=== PATIENT | male | born 1985 | race Caucasian/White ===

== ENCOUNTER 2017-01-11 23:28 | Emergency (ER) | payer OTHER ==
[~2017-01-11] VITALS: Ht 162.6 cm; Wt 81.8 kg
[2017-01-11 23:30] VITALS: Ht 162.6 cm; Wt 81.8 kg
--- NOTE | 2017-01-11 23:44 | ERA ---
ER Documentation Chief Complaint Date/Time DATE: 01/11/17 TIME: 23:43 Chief Complaint medical clearance HPI The patient is a 31-year-old male, presenting to the ER for medical clearance for holding correction in [facility]. He has been drinking prior to being arrested. He is unable to provide any history, the history is obtained from the supervising law enforcement analyst Past medica history: Cirrhosis Past surgical history: Unable to obtain due to his condition ROS All systems reviewed and are negative except as per history of present illness. Physical Exam Vitals Vital Signs Date Time Temp Pulse Resp B/P Pulse Ox O2 Delivery O2 Flow Rate FiO2 01/12/17 02:32 88 16 122/88 99 01/11/17 23:30 97.7 82 10 131/77 99 Room Air 01/11/17 23:30 97.7 82 10 131/77 92 Physical Exam Const: No acute distress. Head: Atraumatic. Eyes: Normal Conjunctiva. ENT: Normal External Ears, Nose and Mouth. Neck: Full range of motion. No meningismus. Resp: Clear to auscultation bilaterally. Cardio: Regular rate and rhythm, no murmurs. Abd: Soft, non distended, normal bowel sounds, non tender. Skin: No petechiae or rashes. Back: No midline or flank tenderness. Ext: No cyanosis, or edema. Neur: Unable to perform due to his condition Psych: Unable to perform due to his condition. Result Diagram: 01/11/17 2335 01/11/17 2335 Results 24 hrs Laboratory Tests Test 01/11/17 23:35 01/11/17 23:55 01/12/17 00:12 White Blood Count 5.310^3/ul Red Blood Count 3.7910^6/ul Hemoglobin 8.8g/dl Hematocrit 29.7% Mean Corpuscular Volume 78.4fl Mean Corpuscular Hemoglobin 23.2pg Mean Corpuscular Hemoglobin Concent 29.6g/dl Red Cell Distribution Width 22.5% Platelet Count 46976^3/UL Mean Platelet Volume 10.8fl Neutrophils % 49.5% Lymphocytes % 34.5% Monocytes % 9.7% Eosinophils % 5.5% Basophils % 0.4% Nucleated Red Blood Cells % 0.0/100WBC Neutrophils # 2.610^3/ul Lymphocytes # 1.810^3/ul Monocytes # 0.510^3/ul Eosinophils # 0.310^3/ul Basophils # 0.010^3/ul Nucleated Red Blood Cells # 0.010^3/ul Prothrombin Time 15.2Sec Prothrombin Time Ratio 1.2 INR International Normalized Ratio 1.19 Activated Partial Thromboplast Time 33.7Sec Sodium Level 146mmol/L Potassium Level 3.6mmol/L Chloride Level 111mmol/L Carbon Dioxide Level 24mmol/L Anion Gap 15 Blood Urea Nitrogen 9mg/dl Creatinine 0.51mg/dl Glucose Level 108mg/dl Calcium Level 8.6mg/dl Total Bilirubin 0.8mg/dl Direct Bilirubin 0.00mg/dl Indirect Bilirubin 0.8mg/dl Aspartate Amino Transf (AST/SGOT) 74IU/L Alanine Aminotransferase (ALT/SGPT) 48IU/L Alkaline Phosphatase 196IU/L Total Protein 8.8g/dl Albumin 4.4g/dl Globulin 4.40g/dl Albumin/Globulin Ratio 1.00 Lipase 127U/L Ethyl Alcohol Level 417.0mg/dl Urine Opiates Screen NEGATIVE Urine Barbiturates NEGATIVE Urine Amphetamines Screen NEGATIVE Urine Benzodiazepines Screen NEGATIVE Urine Cocaine Screen NEGATIVE Urine Cannabinoids NEGATIVE Bedside Glucose 164mg/dL Current Medications Medications (Trade) Dose Ordered Sig/Matty Route PRN Reason Start Time Stop Time Status Last Admin Dose Admin Ondansetron HCl (Zofran Inj) 4 mg ONCE STAT IM 01/11/17 23:47 01/11/17 23:48 DC 01/12/17 00:07 Procedures/[place] [id number] Radiology Main Line: [phone] DIAGNOSTIC IMAGING REPORT Patient: SOMMER PEREZ : 1985 Age: 31 Sex: M MR #: [id number] DOS: 01/11/17 0000 Ordering MD: DULCE GODDARD MD Location: E/R Room/Bed: PROCEDURE: XR Chest. CLINICAL INDICATION: Rule out pneumonia. TECHNIQUE: Single frontal view of the chest. COMPARISON: None. FINDINGS: The cardiomediastinal silhouette is within normal limits. Mild retrocardiac airspace disease may represent pneumonia. The lungs are otherwise clear. No signs of pleural fluid or pneumothorax are seen. The osseous structures and soft tissues are unremarkable. IMPRESSION: Mild retrocardiac airspace disease may represent pneumonia. RPTAT: [facility] Physician [facility] Date Time Electronically viewed and signed by Asif Sanz Physician on 01/12/2017 02:16 RS/ CC: DULCE GODDARD MD MEDICAL MAKING DECISION: The patient is a 31-year-old male, presenting to the ER for medical clearance, acute alcohol intoxication, suspected pneumonia. He is resting well in the emergency department. He was treated with Zofran 4 mg IM for nausea with good response. The differential diagnoses considered include but are not limited to alcohol intoxication, psychosis, drug-induced psychosis Departure Diagnosis: Primary Impression: Alcoholic intoxication Additional Impressions: Pneumonia Anemia Thrombocytopenia Condition: Stable Comments He will be discharged once he is sober with Zithromax for suspected pneumonia I discussed the findings with the patient. I advised the patient to follow-up with the correction physician in the morning for further evaluation The patient's blood pressure was elevated (>120/80) but appears stable without evidence of hypertension emergency or urgency. The patient was counseled about the risks of hypertension and urged to pursue outpatient monitoring and therapy within a week with their primary care physician. DULCE GODDARD MD January 11, 2017 23:43
[2017-01-11] MEDS ORDERED: ONDANSETRON 4 MG INJ IM STA (23:47)
[2017-01-12 00:01] LABS: ADD SCAN DIFF NO
[2017-01-12 00:04] LABS: ABNORMAL IP MESSAGE 1; HEMOGLOBIN 8.8 g/dl (14.0-18.0); WHITE BLOOD COUNT 5.3 10^3/ul (4.8-10.8)
[2017-01-12 00:09] LABS: BASOPHILS % 0.4 % (0.0-2.0); EOSINOPHILS # 0.3 10^3/ul (0.0-0.5); EOSINOPHILS % 5.5 % (0.0-7.0); HEMATOCRIT 29.7 % (42.0-52.0); LYMPHOCYTES # 1.8 10^3/ul (0.8-2.9); LYMPHOCYTES % 34.5 % (15.0-51.0); MEAN CORPUSCULAR HEMOGLOBIN 23.2 pg (29.0-33.0); MEAN CORPUSCULAR HGB CONC 29.6 g/dl (32.0-37.0); MEAN CORPUSCULAR VOLUME 78.4 fl (82.0-101.0); MEAN PLATELET VOLUME 10.8 fl (7.4-10.4); MONOCYTE # 0.5 10^3/ul (0.3-0.9); MONOCYTES % 9.7 % (0.0-11.0); NEUTROPHIL # 2.6 10^3/ul (1.6-7.5); NEUTROPHILS % 49.5 % (39.0-77.0); PLATELET COUNT 123 10^3/UL (140-415); RED BLOOD COUNT 3.79 10^6/ul (4.70-6.10); RED CELL DISTRIBUTION WIDTH 22.5 % (11.5-14.5)
[2017-01-12 00:21] LABS: INR 1.19; PROTIME 15.2 Sec (12.2-14.2); PT RATIO 1.2
[2017-01-12 00:22] LABS: PARTIAL THROMBOPLASTIN TIME 33.7 Sec (25.0-35.0)
[2017-01-12 00:38] LABS: BARBITURATES NEGATIVE (NEGATIVE); BENZODIAZEPINES NEGATIVE (NEGATIVE); CANNABINOIDS NEGATIVE (NEGATIVE); COCAINE NEGATIVE (NEGATIVE); OPIATES NEGATIVE (NEGATIVE)
[2017-01-12 01:23] LABS: ALBUMIN 4.4 g/dl (3.3-4.9)
[2017-01-12 01:26] LABS: BILIRUBIN,INDIRECT 0.8 mg/dl (0-1.1); BILIRUBIN,TOTAL 0.8 mg/dl (0.2-1.3); CALCIUM 8.6 mg/dl (8.4-10.2); CREATININE 0.51 mg/dl (0.61-1.24); TOTAL PROTEIN 8.8 g/dl (6.1-8.1)
[2017-01-12 01:45] LABS: POTASSIUM 3.6 mmol/L (3.5-5.1)
--- NOTE | 2017-01-12 02:17 | RADRPT ---
PROCEDURE: XR Chest. CLINICAL INDICATION: Rule out pneumonia. TECHNIQUE: Single frontal view of the chest. COMPARISON: None. FINDINGS: The cardiomediastinal silhouette is within normal limits. Mild retrocardiac airspace disease may rep resent pneumonia. The lungs are otherwise clear. No signs of pleural fluid or pneumothorax are seen . The osseous structures and soft tissues are unremarkable. IMPRESSION: Mild retrocardiac airspace disease may represent pneumonia. RPTAT: [facility] Physician [facility] Date Time Electronically viewed and signed by Physician Gilbert on 01/12/2017 02:16 RS/
[2017-01-12] MEDS ORDERED: AZIT250T94 PO (03:26)
[2017-01-12 05:56] VITALS: BP 119/78; PULSE 74; RESP 18; TEMP 97.7
== END 2017-01-12 05:58 | disposition home or self-care (01) ==
LOC: E/R 23:28
DX: F10.120 Alcohol abuse with intoxication, uncomplicated (principal); J18.9 Pneumonia, unspecified organism; D64.9 Anemia, unspecified; D69.6 Thrombocytopenia, unspecified
CPT/HCPCS: 36415; 71010; 80053; 80306; 80307; 82962; 83690; 85025; 85610; 85730; 96372; 99284; J2405